=== PATIENT | female | born 1960 | race Caucasian/White ===

== ENCOUNTER → 2020-06-12 | Outpatient (CLI) | payer OTHER | LOC: SJCVCIMAG 08:27 | PROVIDERS: ATTEND Internal Medicine Cardiovascular Disease | DX: I10 Essential (primary) hypertension (principal) ==

== ENCOUNTER → 2020-06-24 | Outpatient (CLI) | payer OTHER ==
[2020-06-24 12:55] LABS: BASOPHILS 0.4 % (0.0-2.0); EOSINOPHILS 2.3 % (0.0-3.0); HEMATOCRIT 39.1 % (37.0-47.0); HEMOGLOBIN 13.2 gm/dL (12.0-15.0); LYMPHOCYTES 29.6 % (24.0-44.0); MCH 32.1 pg (26.0-34.0); MCHC 33.7 g/dL (28.0-37.0); MCV 95.2 fL (80.0-100.0); MONOCYTES 8.9 % (1.0-8.0); PLATELET COUNT 310 thou/uL (150-400); POLYS 58.8 % (36.0-66.0); RDW 12.7 % (10.5-14.5); WBC 5.1 thou/uL (4.0-11.0)
[2020-06-24 13:10] LABS: CALCIUM 9.2 mg/dL (8.5-10.1); CREATININE 0.6 mg/dL (0.6-1.0); POTASSIUM 4.6 mmol/L (3.5-5.1); TOTAL BILIRUBIN 0.5 mg/dL (0.2-1.0); TOTAL PROTEIN 7.2 g/dL (6.4-8.2)
[2020-06-24 13:36] LABS: FOLIC ACID 19.7 ng/mL (8.6-58.9); TSH 0.036 uIU/mL (0.358-3.740)
[2020-06-24 13:47] LABS: % SATURATION 29 % (20-39); IRON 99 ug/dL (50-170); TIBC 344 ug/dL (250-450)
[2020-06-25 01:06] LABS: T4 (THYROXINE) 9.1 ug/dL (4.5-12.0)
[2020-06-25 02:06] LABS: TESTOSTERONE* 34 ng/dL (3-41)
[2020-06-27 18:06] LABS: FREE TESTOSTERONE 2.5 pg/mL (0.0-4.2)
== END ==
LOC: RAD 05-06 09:12 → NUC 05-06 21:12 → RAD 05-06 21:15 → LAB 09:28 → RAD 13:37
PROVIDERS: ATTEND Obstetrics & Gynecology
DX: Z12.31 Encounter for screening mammogram for malignant neoplasm of breast (principal); Z78.0 Asymptomatic menopausal state; D51.3 Other dietary vitamin B12 deficiency anemia; Z00.00 Encounter for general adult medical examination without abnormal findings; E03.9 Hypothyroidism, unspecified; Z79.899 Other long term (current) drug therapy; Z79.890 Hormone replacement therapy; R53.83 Other fatigue; Z17.0 Estrogen receptor positive status [ER+]; Z80.0 Family history of malignant neoplasm of digestive organs

== ENCOUNTER → 2021-03-20 | Outpatient (CLI) | payer OTHER ==
[~2021-03-20] MED LIST: ASA81BEC PO; B COMPLEX1 EACH PO; BENICAR40 MG PO; BYSTOLIC10 MG PO; C-10001000 MG PO; COLACE100 MG PO; HYALURONIC ACI1 EACH PO; L-LYSINE1000 M1 PO; LEVO-T100 MCG PO; LIVALO2 MG PO; MILK THISTLE175 M4 PO; MINIVELLE1 EAC1 PAD; NIACIN 500 MG500 M1 PO; VITAMIN D21250 MCG PO; ZINC30 MG PO; [UNRECOGNIZED DRUG - OTHER] PO
== END ==
LOC: MRI 09:09
PROVIDERS: ATTEND Family Medicine
DX: S43.492A Other sprain of left shoulder joint, initial encounter (principal); M75.102 Unspecified rotator cuff tear or rupture of left shoulder, not specified as traumatic; X58.XXXA Exposure to other specified factors, initial encounter; Y93.89 Activity, other specified; Y92.89 Other specified places as the place of occurrence of the external cause; Y99.8 Other external cause status

== ENCOUNTER → 2021-03-27 | Outpatient (CLI) | payer OTHER | LOC: SJCVCIMAG | PROVIDERS: ATTEND Internal Medicine Cardiovascular Disease | DX: I49.3 Ventricular premature depolarization (principal); I49.1 Atrial premature depolarization; R06.00 Dyspnea, unspecified; I10 Essential (primary) hypertension; E78.5 Hyperlipidemia, unspecified; R53.83 Other fatigue; Z82.49 Family history of ischemic heart disease and other diseases of the circulatory system ==

== ENCOUNTER → 2021-04-02 | Outpatient (CLI) | payer OTHER ==
[~2021-04-02] VITALS: Ht 167.6 cm; Wt 70.3 kg
[2021-04-02 07:29] VITALS: BP 134/56
[2021-04-02 08:23] LABS: HEMATOCRIT 34.7 % (37.0-47.0); HEMOGLOBIN 11.7 gm/dL (12.0-15.0); MCH 31.8 pg (26.0-34.0); MCHC 33.8 g/dL (28.0-37.0); MCV 94.2 fL (80.0-100.0); RBC 3.68 mil/uL (4.20-5.00); RDW 12.3 % (10.5-14.5); WBC 4.3 thou/uL (4.0-11.0)
[2021-04-02 08:38] LABS: CALCIUM 8.7 mg/dL (8.5-10.1); CREATININE 0.7 mg/dL (0.6-1.0); POTASSIUM 4.3 mmol/L (3.5-5.1)
--- NOTE | 2021-04-02 11:36 | EKG ---
[place] [address] [facility] [place] [address] ELECTROCARDIOGRAM REPORT Name: HYUNANIL Reyes Room #: REG [facility]#: [id number] Admission: 04/02/21 Attend Phys: Lucien Barragan MD, Discharge: Date of : 60 Report #: [id number] [facility] Test Date: 2021-04-02 Test Time: 07:14:48 Pat Name: ANIL PURVIS Department: Room: Gender: F Investigator Vice: SBULOW : 1960 Requested By: Lucien Barragan Order Number: [id number] : Cristo Castellano Measurements Intervals [place] Rate: 54 P: 65 NM: 185 QRS: 36 QRSD: 92 T: 46 QT: 437 QTc: 415 Interpretive Statements Sinus rhythm Abnormal R-wave progression, late transition No previous ECG available for comparison Electronically Signed On 04-02-2021 11:35:52 CDT by Cristo Castellano [email or web address] <ELECTRONICALLY SIGNED> By: Cristo Castellano MD, [facility] 04/02/21 1135 0714 3 Cristo Castellano MD, FACC /EPI
--- NOTE | 2021-04-02 17:25 | CATHLAB ---
[facility] [place] [address] INVASIVE PROCEDURE REPORT Name: ANIL PURVIS Room #: REG [facility]#: [id number] Admission: 04/02/21 Attend Phys: Lucien Barragan MD, Discharge: Date of : 60 Report #: [id number] THIS REPORT FOR: cc: Gabino Morrow MD, FAAFP FACE Gabino Morrow MD, FAAFP FACELucien Hung MD [facility] ~ APPROVED REPORT Study performed: 04/02/2021 08:24:59 Patient Details Patient Status: Out-Patient Room #: The patient is a 60 year-old female Event Personnel Lucien Barragan Fryline Attendant, Allyson Dewey RTR Monitor, Poornima Ambrose RTR, Rick Marino Dexter RN treatment supervisor Performed Art Access - R femoral artery* Left Heart Cath w/or w/o Coronaries [id number] [facility] Aortogram Abdominal Peripheral Angio 181727 Hemostasis w/ Mynx 36290 Initial Mod Sed Same Phys/QHP Gr5y 195259 43101 Mod Sed Same Phys/QHP Ea 367301 Procedure Narrative The Right Groin^ was infiltrated with 1% Lidocaine subcutaneous anesthesia. A PINNACLE 6FR Sheath #[id number] sheath was inserted into the RFA^. Coronary angiography was performed using coronary diagnostic catheters. The right coronary system was accessed and visualized with a JR4 catheter. The left coronary system was accessed and visualized with a JL4 catheter. The left ventricle was accessed and visualized with a PIGTAIL catheter. Left ventriculogram was performed in 30 degree projection. An aortogram of the abdominal aorta was performed. Pre-demployment femoral angiogram was performed . Closure device was deployed with a Fr MYNXGRIP 6/7F #[id number]. The patient tolerated the procedure well and there were no complications associated with the procedure. There was no hematoma. Intraoperative Conscious Sedation Sedation start time: 9:08 Case end Time: 9:36 Fentanyl 50 mcg Versed 1.5 mg [facility] [address] [place] [address] INVASIVE PROCEDURE REPORT Name: TYLERSHERANIL Reyes [id number] Admission: 04/02/21 Attend Phys: Lucien Barragan, Discharge: Date of : 60 Report #: [id number] Fluoro Time: 1.60 minutes Dose: DAP 2485.60 cGycm2 299 mGy Contrast Type and Amount: Omnipaque 95 ml Hemodynamics The aortic pressure is 154/66 mmHg with a mean of 92 mmHg. The left ventricular pressure is 189/6 mmHg with a mean of mmHg. The left ventricular end diastolic pressure is 21 mmHg. Conclusion #1. Normal left ventricular size and systolic function EF 60%. #2 normal coronary anatomy in a right dominant system. No occlusive disease is noted minimal plaquing. #3 abdominal aortogram normal caliber no evidence of aneurysm or stenosis. Renal arteries widely patent. Recommendations and plan: Continue aggressive risk factor modification no indication for coronary intervention. <ELECTRONICALLY SIGNED> By: Lucien Barragan MD, [facility] 04/02/211723 23 23 Lucien Barragan MD, FACC /INF
== END | disposition home or self-care (01) ==
LOC: CATH 06:24
PROVIDERS: ATTEND Internal Medicine Cardiovascular Disease
DX: R94.39 Abnormal result of other cardiovascular function study (principal); I25.10 Atherosclerotic heart disease of native coronary artery without angina pectoris; I10 Essential (primary) hypertension; E78.5 Hyperlipidemia, unspecified; Z98.890 Other specified postprocedural states; Z79.899 Other long term (current) drug therapy; Z98.51 Tubal ligation status; Z87.891 Personal history of nicotine dependence; Z82.49 Family history of ischemic heart disease and other diseases of the circulatory system

== ENCOUNTER → 2021-09-02 | Outpatient (CLI) | payer OTHER | LOC: RAD 13:09 | PROVIDERS: ATTEND Obstetrics & Gynecology | DX: Z12.31 Encounter for screening mammogram for malignant neoplasm of breast (principal) ==

== ENCOUNTER → 2022-01-06 | Outpatient (CLI) | payer OTHER | LOC: SJCVCIMAG 10:42 | PROVIDERS: ATTEND Internal Medicine Cardiovascular Disease | DX: E04.9 Nontoxic goiter, unspecified (principal) ==